=== PATIENT | female | born 1995 | race Two or more races ===

== ENCOUNTER 2017-11-02 11:34 | Emergency (ER) | payer SELFPAY ==
[~2017-11-02] VITALS: Ht 152.4 cm; Wt 60.1 kg
[2017-11-02 11:55] VITALS: Ht 152.4 cm; Wt 60.1 kg
[2017-11-02 12:38] LABS: BASOPHILS 0.3 % (0-2); EOSINOPHILS 1.7 % (0-7); HEMATOCRIT 42.5 % (36.0-48.0); HEMOGLOBIN 14.7 g/dL (12-16); IMMATURE GRANULOCYTES 0.1 % (0-5); LYMPHOCYTES 31.4 % (15-50); MCHC 34.6 g/dL (31.0-37.0); MCV 86.7 fL (80.0-100.0); MEAN PLATELET VOLUME 9.7 fL (7.4-10.4); MONOCYTES 7.4 % (2-11); NEUTROPHILS 59.1 % (40-80); PLATELET COUNT 282 10x3/uL (130-400); RDW 12.1 % (11.5-14.5)
[2017-11-02 12:49] LABS: ALKALINE PHOSPHATASE 68 U/L (46-116); ALT (SGPT) 27 U/L (10-68); BILIRUBIN - TOTAL 0.44 mg/dL (0.2-1.3); CALC OSMOLALITY 277 mosm/kg (275-300); CALCIUM 9.1 mg/dL (8.5-10.1); CARBON DIOXIDE 28.1 mmol/L (21.0-32.0); CHLORIDE - SERUM 105 mmol/L (98-107); CREATININE - SERUM 0.7 mg/dL (0.6-1.3); GLUCOSE 85 mg/dL (74-106); POTASSIUM - SERUM 3.6 mmol/L (3.5-5.1); PROTEIN - SERUM 7.8 g/dL (6.4-8.2); SODIUM 140 mmol/L (136-145); UREA NITROGEN 12 mg/dL (7-18); eGFR NON AFRICAN AMERICAN > 90 mL/min (90-120)
[2017-11-02 13:07] LABS: APPEARANCE HAZY (CLEAR); BACTERIA FEW /hpf (NONE SEEN); BILIRUBIN NEGATIVE (NEGATIVE); COLOR YELLOW (YELLOW); EPITHELIAL CELLS 0-5 /hpf (0-5); GLUCOSE NEGATIVE (NEGATIVE); KETONE NEGATIVE (NEGATIVE); MUCUS <1+ /lpf (NONE SEEN); NITRITE NEGATIVE (NEGATIVE); PROTEIN NEGATIVE (NEGATIVE); RED CELLS - URINE 0-5 /hpf (0-5); UROBILINOGEN NORMAL (NORMAL); WHITE CELLS - URINE 0-5 /hpf (0-5)
[2017-11-02 13:09] LABS: HCG SERUM NEGATIVE (NEGATIVE)
[2017-11-02] MEDS ORDERED: TORADOL10 MG PO (16:04)
[2017-11-02 16:25] VITALS: BP 102/64
== END 2017-11-02 16:25 | disposition home or self-care (01) ==
LOC: D.ER 11:34 → EDBD 11:34 → D.ER 16:25
PROVIDERS: Family Medicine
DX: R30.0 Dysuria (principal); R10.2 Pelvic and perineal pain; M54.5 Low back pain